=== PATIENT | female | born 1980 | race Caucasian/White ===

== ENCOUNTER 2017-01-24 08:00 | Outpatient (CLI) | payer OTHER ==
--- NOTE | 2017-01-24 10:43 | CT ---
CT CHEST WITH CONTRAST CT ABDOMEN WITH CONTRAST CT PELVIS WITH CONTRAST: Date: 01/24/17 HISTORY: Breast cancer with bone metastasis. COMPARISON: PET CT dated 10/12/16. TECHNIQUE: CT of the chest, abdomen, and pelvis performed after the intravenous administration of contrast. FINDINGS: Port catheter tip at right atrium. No pericardial effusion. Heart size is normal. There are bilateral breast flap reconstructions. No aneurysmal dilatation of the aorta. The pulmonary trunk size is normal. No suspicious pulmonary no dule. No effusion. No pneumothorax. Prior cholecystectomy. There is a hypodensity of the spleen, similar to the 05/22/16 CT of chest exam ination. Pancreas is unremarkable. Liver is unremarkable. No retroperitoneal adenopathy. Left ovarian cystic structure is present. Intrauterine device is present. Surgical hardware of the an terior abdominal wall. No hydronephrosis. No dilated loops of large or small bowel. No superficial soft tissue abnormality. There is extensive osseous metastatic disease. There are compressive deformities at T7 and T8, which were similar to the comparison examination. There is increased sclerosis of the osseous metastatic di sease likely indicative of healing. IMPRESSION: 1. No evidence of new metastatic disease within the chest, abdomen, or pelvis. 2. Increased sclerosis of the axial spine metastatic foci suggesting healing. 3. T7 and T8 compression deformities have no further height loss from the comparison examinations wi th less than 25% height loss. POS: OFF
[2017-01-24] MEDS ORDERED: Iopamidol 370 76% 100 ML VIAL ONE (17:03)
== END 2017-01-24 08:01 | disposition home or self-care (01) ==
LOC: CT 08:00
PROVIDERS: ATTEND Internal Medicine Hematology & Oncology
DX: Z51.11 Encounter for antineoplastic chemotherapy (principal); C50.412 Malignant neoplasm of upper-outer quadrant of left female breast; C79.51 Secondary malignant neoplasm of bone; K21.9 Gastro-esophageal reflux disease without esophagitis; D50.9 Iron deficiency anemia, unspecified; N18.2 Chronic kidney disease, stage 2 (mild); Z79.899 Other long term (current) drug therapy; G95.89 Other specified diseases of spinal cord; I07.1 Rheumatic tricuspid insufficiency; I34.0 Nonrheumatic mitral (valve) insufficiency; I35.1 Nonrheumatic aortic (valve) insufficiency
CPT/HCPCS: 71260; 74177; 93306

== ENCOUNTER 2017-01-24 10:00 | Outpatient (CLI) | payer OTHER ==
[~2017-01-24 10:00] MED LIST: Gadobenate Dimeglumine 529 MG/1 ML (20ML VIAL) ONE
--- NOTE | 2017-01-24 15:12 | MRI ---
MRI BRAIN WITH AND WITHOUT CONTRAST: DATE: 01/24/17. HISTORY: A 36-year-old female with history of breast cancer metastatic to the brain, status post chemotherapy and radiation therapy to the brain. Followup. Nausea with vomiting. As requested, this report was verbally given to Dr. Reyna at the time of this dictation. COMPARISON: 10/12/16. TECHNIQUE: Multiple sequences obtained in axial, sagittal, and coronal planes; pre and post IV injection of gado linium-based contrast agent: 1 mL of MultiHance. FINDINGS: There has been interval progression of the previously demonstrated multifocal T2 hyperintense white m atter lesions of the cerebrum, which are now confluent throughout the periventricular and deep white matter of the cerebrum. There are a few scattered mild small, focal T2 hyperintense cortical lesions , including right lateral temporal cortex, right anterolateral cerebellar hemisphere, and left latera l cerebellar hemisphere (site of previous metastatic lesion). There is currently no abnormal intraax ial enhancement or mass. No mass effect, midline shift, restricted diffusion, or extraaxial fluid co llection. No obstructive hydrocephalus. 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 The bone marrow signal is within normal limits. IMPRESSION: 1. Interval worsening of now moderate to severe chronic ischemic white matter changes, accelerated d ue to radiation therapy. 2. No evidence of active intracranial metastases. 3. Pineal cyst. NAYELY Mendez POS: [facility]
== END 2017-01-24 10:01 | disposition home or self-care (01) ==
LOC: SCSMRI 10:00
PROVIDERS: ATTEND Internal Medicine Hematology & Oncology
DX: C79.31 Secondary malignant neoplasm of brain (principal); C50.919 Malignant neoplasm of unspecified site of unspecified female breast; C79.51 Secondary malignant neoplasm of bone; R11.2 Nausea with vomiting, unspecified; K21.9 Gastro-esophageal reflux disease without esophagitis; D50.9 Iron deficiency anemia, unspecified; R51 Headache; E34.8 Other specified endocrine disorders; C50.412 Malignant neoplasm of upper-outer quadrant of left female breast; N18.2 Chronic kidney disease, stage 2 (mild)
CPT/HCPCS: 70553; 71260; 74177; 93306; A9579

== ENCOUNTER 2017-03-28 12:29 | Outpatient (CLI) | payer BC ==
--- NOTE | 2017-03-28 15:06 | NM ---
NUCLEAR MEDICINE MUGA STUDY: History: Breast cancer. Evaluation for chemotherapy. Technique: Examination was performed using 25 mCi Technetium 99M tagged red blood cell. FINDINGS: The calculated ejection fraction was 55%. IMPRESSION: Calculated left ventricular ejection fraction of 55%. POS: [facility]
== END 2017-03-28 12:30 | disposition home or self-care (01) ==
LOC: NM 12:29
PROVIDERS: ATTEND Internal Medicine Hematology & Oncology
DX: Z08 Encounter for follow-up examination after completed treatment for malignant neoplasm (principal); Z79.899 Other long term (current) drug therapy; Z85.3 Personal history of malignant neoplasm of breast
CPT/HCPCS: 78472; A9604; J1642

== ENCOUNTER 2017-05-02 13:40 | Outpatient (CLI) | payer BC ==
--- NOTE | 2017-05-02 18:33 | MRI ---
BRAIN MRI WITH AND WITHOUT CONTRAST: Date: 05-02-17 Comparison: 01-24-17 History: Breast cancer with intracranial metastatic disease. Comparison: 01-24-17 and prior. Technique: Multiplanar, multisequence MRI imaging of the brain provided with and without contrast. FINDINGS: The diffusion weighted imaging demonstrates no evidence for acute infarction. Axial gradient echo demetrice ging demonstrates no evidence for intracranial hemorrhage. There is extensive periventricular, deep, and subcortical white matter T2/FLAIR hyperintensity, as se en on the prior examination. Arterial flow voids at axial level of the skull base appear grossly unremarkable on the T2 weighted i maging. Imaged paranasal sinuses and mastoid air cells appear well aerated. There are two subtle tiny foci of abnormal enhancement within the superior aspect of the cerebellar v ermis, measuring up to 3 mm on thin section post contrast axial Image 70 and up to 3 mm on post contr ast thin section axial Image 65. These findings are suspicious for early recurrent intracranial metas tatic disease. There is no midline shift, mass effect, or ventricular enlargement noted. There is a stable pineal cyst noted. IMPRESSION: 1. There are two tiny punctate foci of enhancement noted within the cerebellar vermis as described ab alnny, concerning for metastatic disease. Short term follow up brain MRI is advised. 2. Code T POS: [facility]
== END 2017-05-02 13:41 | disposition home or self-care (01) ==
LOC: MRI 13:40
PROVIDERS: ATTEND Internal Medicine Hematology & Oncology
DX: C50.412 Malignant neoplasm of upper-outer quadrant of left female breast (principal); C71.9 Malignant neoplasm of brain, unspecified
CPT/HCPCS: 70553; J1642

== ENCOUNTER 2017-05-04 10:30 | Outpatient (CLI) | payer BC ==
[2017-05-04] MEDS ORDERED: ISOVUE-370 76%-LOCM 1 ML ONE (12:51)
== END 2017-05-04 10:31 | disposition home or self-care (01) ==
LOC: BICCT 10:30
PROVIDERS: ATTEND Internal Medicine Hematology & Oncology
DX: C50.919 Malignant neoplasm of unspecified site of unspecified female breast (principal); C79.51 Secondary malignant neoplasm of bone
CPT/HCPCS: 71260; 74177

== ENCOUNTER 2017-06-14 09:29 | Outpatient (CLI) | payer BC ==
--- NOTE | 2017-06-14 14:21 | MRI ---
BRAIN MRI WITH AND WITHOUT CONTRAST: COMPARISON: 05/02/17, 01/24/17. TECHNIQUE: Brain MRI is performed with and without intravenous Gadolinium administration. Multisequential, mult iplanar imaging is performed. FINDINGS: No hemorrhage on the axial gradient echo sequence. Redemonstration of a cyst involving the pineal gl and, unchanged. No associated hydrocephalus. There are T2 and FLAIR white matter hyperintensities, unchanged. Findings may be due to post-treatment change. Central arterial flow voids are maintained. Absent restricted diffusion. No evidence of hemorrhage on the axial gradient echo sequence. Calvarium has a normal T1 marrow signal intensity. Partially empty sella is noted. Adequate aeration of the sinuses and mastoid air cells. No evidence of abnormal enhancement in the cerebrum. Punctate enhancement involving the cerebellar v ermis is redemonstrated, though is somewhat less evident. The overall location of enhancement is unc hanged. The degree of enhancement is less intense. The lesion measured 1-3 mm. No new areas of enh ancement. IMPRESSION: 1. Stable T2 and FLAIR white matter hyperintensities. Findings may be due to posttreatment change. 2. Stable punctate enhancement involving the cerebellar vermis, with slightly decreased intensity in terms of the degree of enhancement. 3. Stable pineal cyst. POS: [facility]
== END 2017-06-14 09:30 | disposition home or self-care (01) ==
LOC: MRI 09:29
PROVIDERS: ATTEND Internal Medicine Hematology & Oncology
DX: C50.919 Malignant neoplasm of unspecified site of unspecified female breast (principal); C71.9 Malignant neoplasm of brain, unspecified; E34.8 Other specified endocrine disorders; R93.8 Abnormal findings on diagnostic imaging of other specified body structures
CPT/HCPCS: 70553; J1642

== ENCOUNTER 2017-08-01 10:59 | Outpatient (CLI) | payer BC ==
[2017-08-01] MEDS ORDERED: Gadobenate Dimeglumine 529 MG/1 ML (20ML VIAL) ONE (12:59)
--- NOTE | 2017-08-01 15:07 | MRI ---
BRAIN MRI WITH AND WITHOUT CONTRAST: HISTORY: Breast cancer with brain metastases. Status post radiation treatment. Evaluate for restaging. COMPARISON: 07/04/17, 05/02/17. TECHNIQUE: Brain MRI is performed with and without intravenous Gadolinium administration. Multisequential, mult iplanar imaging is performed. FINDINGS: No hemorrhage on the axial gradient echo sequence. No parenchymal mass, mass effect, or midline shift. Stable brain volume. Cortical emmanuel-white matter differentiation is preserved. No evidence of hydrocephalus. Central arterial flow voids are maintained. Absent restricted diffusion. Previously noted area of punctate enhancement in the cerebellar vermis is essentially unchanged and m easures 3 mm. There are no areas of new enhancement in the cerebellum or in the cerebrum. Stable pineal cyst without associated hydrocephalus. Adequate aeration of the sinuses and mastoid air cells. Stable T2 and FLAIR white matter hyperintensity. Absent restricted diffusion. IMPRESSION: 1. Stable punctate enhancement involving the cerebellar vermis. 2. No new areas of abnormal enhancement. POS: [facility]
== END 2017-08-01 11:00 | disposition home or self-care (01) ==
LOC: MRI 10:59
PROVIDERS: ATTEND Radiology Radiation Oncology
DX: C50.919 Malignant neoplasm of unspecified site of unspecified female breast (principal); C79.31 Secondary malignant neoplasm of brain
CPT/HCPCS: 70553; A9579

== ENCOUNTER 2017-08-19 09:59 | Outpatient (CLI) | payer BC ==
[2017-08-19 11:05] LABS: Hemoglobin 12.1 g/dL (12.0-16.0); Mean Corpuscular HGB CONC 34.2 g/dL (32.0-36.0); Mean Corpuscular Hemoglobin 28.9 pg (27.0-31.0); Mean Corpuscular Volume 84.6 fL (78.0-98.0); Platelet Count 193 thou/uL (130-400); RBC Distribution Width 12.7 % (11.5-14.5); Red Blood Cell (RBC) Count 4.19 mill/uL (4.20-5.40); White Blood Cell (WBC) Count 4.6 thou/uL (4.8-10.8)
[2017-08-19 12:50] LABS: BHCG - Serum Negative (NEGATIVE); Pregs Control Bar Appear? YES (CONTROL BAR)
[2017-08-19 12:51] LABS: Pregs Control Background? CLEAR/WHITE (CLR/WHITE)
== END 2017-08-19 10:00 | disposition home or self-care (01) ==
LOC: LABBT 09:59
PROVIDERS: ATTEND Obstetrics & Gynecology
DX: Z01.812 Encounter for preprocedural laboratory examination (principal); Z85.3 Personal history of malignant neoplasm of breast
CPT/HCPCS: 84703; 85027; 86850; 86900; 86901

== ENCOUNTER 2017-08-22 08:15 | Day surgery (SDC) | payer BC ==
[2017-08-19 10:41] VITALS: BMI 31.2
--- NOTE | 2017-08-22 02:25 | HP ---
She is scheduled for outpatient surgery on 08/22/2017. HISTORY OF PRESENT ILLNESS: Ms. Leach is a 36-year-old white female, G3, P3 with history of metasta tic HER2 positive and on ductal carcinoma with prior history of multiple bone metastases, now in alfreda ssion systemically. She has also had a history of total brain radiation from metastatic brain metast asis from the breast cancer and remains in remission and clinically resolved. She has been referred and recommended for bilateral salpingo-oophorectomy by her oncologist, Dr. Sari Reyna for further t reatment of her metastatic breast disease. PAST MEDICAL HISTORY: On 2012, initially stage II invasive ductal carcinoma, estrogen receptor low po sitive, HER2 positive with then development of metastatic bone disease. She was treated with Hercept in and tamoxifen at that time and has been since followed by Dr. Sari Reyna when she moved to the [place]. PAST SURGICAL HISTORY: As per the HPI and also laparoscopic cholecystectomy, total brain radiation. FAMILY HISTORY: She is and has 3 young children, lives with her spouse. 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 ALLERGIES: She has allergies to PENICILLIN. CURRENT MEDICATIONS: Celebrex 200 mg capsule daily, Flexeril, 2.5 mg tablet, multivitamin, ome prazole 40 mg daily, Zofran 8 mg tablet as needed, tramadol 300 mg tablet extended release daily, tri amcinolone 0.1% topical cream as needed, Xanax 0.25 mg tablet p.r.n. SERVICE CONSULTANT HISTORY: She had a previous Mirena IUD that was recommended to cessation of her menstrual cycle, which she had that recently removed back in 04/2017 due to concern of progesterone receptor ac tivation of her breast cancer and this was removed easily back in April of this year. Otherwise, she is not having any gynecologic complaints. PHYSICAL EXAMINATION: VITAL SIGNS: Her blood pressure is 114/77, pulse 93, respirations 16, height 65 inches, weight 189 p ounds. GENERAL: Well-developed, well-nourished patient in no acute distress. HEENT: Nonfocal. LUNGS: Clear to auscultation. HEART: Regular rate and rhythm. S1, S2 heart sounds. ABDOMEN: Soft and nondistended. No hepatosplenomegaly. EXTREMITIES: Show full range of motion. PELVIC: Vulva and vagina had no lesions. Cervix had no lesions. Uterus; small and nontender. Adne xa were nontender with no masses. ASSESSMENT: This is a 36-year-old white female with a history of metastatic breast cancer who is cur rently systemically in remission along with no evidence of obvious recurrent brain metastasis. She h as low estrogen receptor positivity for this tumor and was felt that removal of her ovaries would be beneficial and treatment of her disease. PLAN: Is to proceed with laparoscopic bilateral salpingo-oophorectomy on 08/22/2017 with benefits of procedure discussed in detail. She is scheduled for surgery.
[2017-08-22] MEDS ORDERED: Sodium Chloride 0.9% 10 ML ONE (08:53)
[2017-08-22] MEDS ORDERED: CeleCOXIB 100 MG CAP ONE (09:14)
[2017-08-22] MEDS ORDERED: Gabapentin 300 MG CAP ONE (09:14)
[2017-08-22] MEDS ORDERED: Famotidine 20 MG TAB ONE (09:14)
[2017-08-22] MEDS ORDERED: Famotidine/PF 20 mg/2ml Vial ONE (09:15)
[2017-08-22] MEDS ORDERED: Midazolam HCl 2 mg/2 ml Vial ONE (09:44)
[2017-08-22] MEDS ORDERED: Ondansetron HCl/PF 4 MG/2 ML Vial ONE ×2 (09:44→13:53)
[2017-08-22] MEDS ORDERED: Dexmedetomidine 200 MCG/2 ML VIAL ONE (10:46)
[2017-08-22] MEDS ORDERED: Propofol 500 MG/50 ML VIAL ONE (10:50)
[2017-08-22] MEDS ORDERED: Bupivacaine HCl 0.5%/Epinephrine 1:200,000/PF 30 ml Vial ONE (10:53)
[2017-08-22] MEDS ORDERED: Clindamycin/D5W 900 mg/50 ml Premix Bag ONE (11:29)
--- NOTE | 2017-08-22 13:10 | OP ---
DATE OF PROCEDURE: 08/22/2017 PREOPERATIVE DIAGNOSES: 1. A 36-year-old white female with history of metastatic breast cancer, ER positive and HER2 positiv e tumor. 2. Medical Oncology recommendation for a bilateral salpingo-oophorectomy for adjuvant therapy of her breast cancer. POSTOPERATIVE DIAGNOSES: 1. A 36-year-old white female with history of metastatic breast cancer, ER positive and HER2 positiv e tumor. 2. Medical Oncology recommendation for a bilateral salpingo-oophorectomy for adjuvant therapy of her breast cancer. PROCEDURE: Laparoscopic bilateral salpingo-oophorectomy. SURGEON: Elsa Ramires M.D. ANESTHESIA: General endotracheal. ESTIMATED BLOOD LOSS: Less than 10 mL. COMPLICATIONS: None. COUNTS: Correct x2. ANTIBIOTICS: Clindamycin 900 mg IV plant operations manager to the OR. FINDINGS: 1. Normal bilateral fallopian tubes and ovaries. Normal appearing uterus. 2. Normal appearing appendix and normal appearing liver. The patient is previously status post chol ecystectomy. PATHOLOGY: Bilateral tubes, and ovaries. COMPLICATIONS: None. DISPOSITION: Recovery room, then plan for discharge home from day stay. DESCRIPTION OF OPERATIVE PROCEDURE: The patient previously received informed consent in regard to he r surgery. She was taken back to the operating room where she received a general endotracheal anesth etic agent without complications. She was placed in dorsal lithotomy position with the use of Mike stirrups and prepped and draped in usual sterile fashion. In and out catheterization of the bladder was performed removing approximately 150 mL of clear urine. A sidearm speculum was placed and a Hulk a uterine manipulator was placed. The tenaculum and speculum were removed. Attention was then turne d to the abdomen where perspective trocar sites were infiltrated with 0.5% Marcaine with epinephrine. A 5 mm infraumbilical incision was made. Veress needle was placed into the peritoneal cavity. Pat ient pressure was noted to be less than 5 mm. The abdomen was insufflated to a patient pressure of 1 5, approximately 4 liters of carbon dioxide gas. A 5 mm trocar was then placed through the infraumbi lical incision. The laparoscope was introduced through a trocar sleeve and proper entry was confirme d. An additional left lower quadrant 5 mm trocar was placed under laparoscopic guidance along with a 10 mm midline suprapubic port. The pelvis was inspected with the previously mentioned findings. Th e manipulator was utilized to elevate the uterus from the pelvis. Bilateral adnexal structures were easily visualized. A 5 mm LigaSure device was placed to the left lower quadrant port and an atraumat ic grasper was placed through the midline suprapubic port. My rn neurosurgical OR nurse held the 5 mm scope as I grasped the fimbria of the right fallopian tube. The LigaSure device was then utilize d to coagulate the right infundibulopelvic ligament just beneath the fimbria. Serial coagulations an d an excision underneath the mesosalpinx of the right fallopian tube and ovary was carried out until the cornua was reached. The tube then, came across its direction and we placed the right fallopian tube and ovary in the anterior cul-de-sac. The left fallopian tube and ovary was again identified. It was grasped by atraumatic grasper. Again, it was coagulated just beneath the IP ligament beneath the fimbria of the left fallopian tube and then under the left ovary, continued coagulation and trans ection under the mesosalpinx below the fallopian tube and ovary was carried out again until the cornu a was reached. It was coagulated and transected. The fallopian tube and ovary was placed in the ant erior cul-de-sac. An Endobag was then placed through the suprapubic 10 mm trocar sleeve under direct visualization. The atraumatic grasper was then utilized to place the 2 ovaries, fallopian tubes wit hin the Endobag and this was secured. The Endobag was then pulled up through the trocar and then pul led out through the fascial defect. A GraNee needle suture device was then utilized to close the fas cial defect in the suprapubic area with an 0 Vicryl suture and good approximation was noted. The ped icle sites again were inspected. Hemostasis was confirmed. The trocar sleeves were removed after ex cess carbon dioxide gas was released from the abdomen. The trocar sites were closed with 4-0 Monocry l suture in subcuticular fashion and Dermabond. The Hulka uterine manipulator was removed and hemost asis of the cervical site was confirmed. The patient was awakened from anesthesia and transferred to the recovery room in stable condition.
[2017-08-22] MEDS ORDERED: Dexamethasone 20 MG/5 ML VIAL ONE (13:53)
[2017-08-22] MEDS ORDERED: Glycopyrrolate 0.2 MG/ML 5 ML SYRINGE ONE (13:53)
[2017-08-22] MEDS ORDERED: Lidocaine 1% PF 5 ML VIAL ONE (13:53)
[2017-08-22] MEDS ORDERED: PROPOFOL 200 MG/20 ML VIAL ONE (13:53)
[2017-08-22] MEDS ORDERED: Heparin 5,000 UNITS/ML VIAL ONE (14:32)
== END 2017-08-22 14:15 | disposition home or self-care (01) ==
LOC: SDC 08:15
PROVIDERS: ATTEND Obstetrics & Gynecology
PROC: 0UT24ZZ Resection of Bilateral Ovaries, Percutaneous Endoscopic Approach (ICD-10-PCS; principal; 2017-08-22)
PROC: 0UT74ZZ Resection of Bilateral Fallopian Tubes, Percutaneous Endoscopic Approach (ICD-10-PCS; principal; 2017-08-22)
DX: Z40.02 Encounter for prophylactic removal of ovary(s) (principal); N83.292 Other ovarian cyst, left side; N83.291 Other ovarian cyst, right side; N83.8 Other noninflammatory disorders of ovary, fallopian tube and broad ligament; F32.9 Major depressive disorder, single episode, unspecified; Z85.3 Personal history of malignant neoplasm of breast; Z85.841 Personal history of malignant neoplasm of brain; Z79.51 Long term (current) use of inhaled steroids; Z79.899 Other long term (current) drug therapy; Z88.0 Allergy status to penicillin
CPT/HCPCS: 88305; A4216; J0670; J1100; J1642; J1644; J2001; J2250; J2405; J2704; J3490; S0028

== ENCOUNTER 2017-08-25 12:21 | Outpatient (CLI) | payer BC | END 2017-08-25 12:22 | disposition home or self-care (01) | LOC: ULT 12:21 | PROVIDERS: ATTEND Internal Medicine Hematology & Oncology | DX: Z51.11 Encounter for antineoplastic chemotherapy (principal); C50.919 Malignant neoplasm of unspecified site of unspecified female breast; I08.3 Combined rheumatic disorders of mitral, aortic and tricuspid valves | CPT/HCPCS: 93306 ==

== ENCOUNTER 2017-09-28 10:15 | Outpatient (CLI) | payer BC ==
--- NOTE | 2017-09-28 12:16 | CT ---
CT THORAX WITH IV CONTRAST CT ABDOMEN AND PELVIS WITH IV CONTRAST: Date: 09-28-17 History: Malignant neoplasm breast. Follow up breast cancer. Nausea and vomiting. Gastroesophageal re flux disease. Osseous metastatic disease. Comparison: 01-24-17 FINDINGS: Right internal jugular vein Metaport catheter is stable in position. Bilateral mastectomies with bilateral breast reconstructions are again noted. Punctate pulmonary nodule is seen within the right upper lobe (Image 27 Series 3), unchanged in size. There are reticular nodular densities as well as ground glass densities seen within the posteromedial aspect of the left lower lobe which could be related to infectious or inflammatory process. This was not present on the prior exam. No additional pulmonary nodular mass is appreciated. Post cholecystectomy changes are again present. There is a stable subcentimeter lower density focus within the posterior aspect body of the spleen. The pancreas, bilateral adrenal glands, kidneys, opacified bowel, urinary bladder, and uterus demonst rate a normal CT appearance. No enlarged lymph nodes are seen by CT size criteria within the chest, abdomen, or pelvis. There are post-surgical changes of the abdomen with multiple surgical clips present in the anterior a spect of the abdomen. Again noted is evidence of metastatic disease with stable compression deformities of the T7 and T8 ve rtebral bodies, similar to prior exam. Areas of sclerosis involving metastatic lesions is suggestive of interval healing. These metastatic lesions predominately involve the spine but additional lesion w ithin the left supraacetabular region as well as the right scapula are again present. No definite new osseous metastatic lesions are seen. CT chest, abdomen, and pelvis are stable from prior exam. IMPRESSION: 1. No new metastatic lesions are seen in the chest, abdomen, or pelvis. 2. Osseous metastatic disease with associated sclerosis suggesting interval healing and treatment. 3. Stable compression deformities of T7 and T8 vertebral bodies. 4. Incidental findings as describe above are stable. POS: [facility]
--- NOTE | 2017-09-28 13:18 | MRI ---
BRAIN MRI WITH AND WITHOUT CONTRAST: HISTORY: Metastatic breast cancer. COMPARISON: 08/01/2017, 06/14/2017, 05/02/2017 TECHNIQUE: A brain MRI is performed with and without intravenous Gadolinium administration. Multisequential, mu ltiplanar imaging is performed. FINDINGS: No hemorrhage on the axial gradient echo sequence. No cerebral parenchymal mass, mass effect, or midline shift. Stable brain volume. Persistent T2 and FLAIR white matter hyperintensities. Central arterial flow voids are maintained. Absent restricted diffusion. The calvarium has a normal T1 marrow signal intensity. Midline brain parenchymal structures are unre markable. No pathologic enhancement in the cerebrum. Stable enhancement of the cerebellar vermis, measuring 4 mm. No appreciable change. No new lesions identified. IMPRESSION: 1. Stable focus of enhancement involving the cerebellar vermis. 2. No new areas of abnormal enhancement. POS: [facility]
== END 2017-09-28 10:16 | disposition home or self-care (01) ==
LOC: CT 10:15
PROVIDERS: ATTEND Internal Medicine Hematology & Oncology
DX: C50.919 Malignant neoplasm of unspecified site of unspecified female breast (principal); C79.51 Secondary malignant neoplasm of bone; C79.31 Secondary malignant neoplasm of brain; R11.2 Nausea with vomiting, unspecified; K21.9 Gastro-esophageal reflux disease without esophagitis; D50.9 Iron deficiency anemia, unspecified; N18.2 Chronic kidney disease, stage 2 (mild); G93.9 Disorder of brain, unspecified; M43.8X4 Other specified deforming dorsopathies, thoracic region
CPT/HCPCS: 70553; 71260; 74177